=== PATIENT | female | born 1960 | race Caucasian/White ===

== ENCOUNTER → 2018-04-15 | Day surgery (SDC) | payer OTHER ==
[2018-04-12 16:36] LABS: BASOPHILS # (AUTO) 0.1 (0.0-0.1); BASOPHILS % 0.8 % (0.0-1.0); EOSINOPHILS # (AUTO) 0.1 (0.0-0.4); EOSINOPHILS % 1.3 % (0.0-6.0); HEMATOCRIT 43.7 % (34.2-44.1); HEMOGLOBIN 14.3 g/dL (12.0-16.0); LYMPHOCYTES # (AUTO) 1.4 (1.0-3.2); LYMPHOCYTES % 22.3 % (18.0-39.1); MEAN CORPUSCULAR HGB CONC 32.7 g/dL (31-35); MEAN CORPUSCULAR VOLUME 94.8 fL (81-99); MONOCYTES # (AUTO) 0.5 (0.2-0.8); MONOCYTES % 7.9 % (4.4-11.3); NEUTROPHILS # (AUTO) 4.2 (2.1-6.9); NEUTROPHILS % 67.4 % (38.7-80.0); PLATELET COUNT 178 x10e3/uL (140-360); RED BLOOD COUNT 4.61 x10e6/uL (3.6-5.1); RED CELL DISTRIBUTION WIDTH 13.8 % (11.7-14.4)
[2018-04-12 17:05] LABS: ANION GAP 12.6 mmol/L (8-16); CALCIUM 9.1 mg/dL (8.4-10.2); CREATININE, SERUM 0.95 mg/dL (0.57-1.11); POTASSIUM 3.6 mmol/L (3.5-5.1)
--- NOTE | 2018-04-12 17:29 | Diagnostic Imaging Report ---
EXAMINATION: PA and lateral views of the chest. COMPARISON: None CLINICAL HISTORY: Preop DISCUSSION: Lines/tubes: None. Lungs: The lungs are well inflated and clear. There is no evidence of pneumonia or pulmonary edema. Pleura: There is no pleural effusion or pneumothorax. Heart and mediastinum: Cardiomediastinal silhouette is unremarkable. Pulmonary vasculature is normal. Tortuous thoracic aorta. Bones and soft tissues: No acute bony abnormalities. Cervical fusion hardware is partially visualized. Metallic clips project over the lower right hemithorax, located in the right breast. Vertebroplasty changes in the lower thoracic/upper lumbar vertebral body IMPRESSION: No acute cardiopulmonary abnormalities. Signed by: Dr. Felipe Denney M.D. on 04/12/2018 5:26 PM
[~2018-04-15] MED LIST: ACETAMINOPHEN 1000 MG/100 ML 100 ML IV ONE; ACETAMINOPHEN/CODEINE 300MG - 30MG TAB ONE; ALLEGRA ALLERGY60 MG PO; BUPIVACAINE 0.25%/EPI 30ML SDV INJ ONE; CALCIUM CARBON500 MG PO; CEFAZOLIN SOD 2 GM/D5W 50ML 50 ML IV ONE; CYMBALTA20 MG PO; DEXAMETHASONE SOD PHOS INJ 4 MG/ML VIAL ONE; FENTANYL CITRATE/PF 100MCG/2 ML INJ ONE; KETOROLAC TROMETHAMINE 30 MG/ML VIAL ONE; LEVOTHYROXINE50 MCG PO; LIDOCAINE 1% W/EPINEPHRINE 20 ML VIAL ONE; LIDOCAINE HCL 2% LOCAL INJ 5 ML SDV VIAL INJ ONE; LOSARTAN POTAS100 MG PO; MIDAZOLAM HCL 2 MG/2 ML VIAL ONE; ONDANSETRON HCL INJ 2 MG/ML VIAL ONE; POTASSIUM CHLO10 ME1 PO; PROPOFOL IV EMULSION 10 MG/ML 20 ML VIAL ONE; SEVOFLURANE INHAL SOLN 250 ML PEN BTL ONE; SINGULAIR10 MG PO; TRIAMTERENE-HCTZ1 EA PO; VITAMIN D1000 UNI1 PO
--- OUTSIDE RECORDS SUMMARY | 2018-04-15 08:46 | XMS REPORT ---
Author Author [facility] Address Unknown Phone Unavailable Care Team Providers Care Transmission Supervisor Name Role Phone Melonie DEJESUS Unavailable Unavailable Anthony Sauer Unavailable Unavailable Nenita ROMAN Unavailable Unavailable Ben Tsang Unavailable Unavailable Problems This patient has no known problems. Allergies, Adverse Reactions, Alerts This patient has no known allergies or adverse reactions. Medications This patient has no known medications. Results Test Description Test Time Test Comments Text Results Atomic Results Result Comments CHEST 2 VIEWS 2018-04-12 17:24:00 [place] [address] Patient Name: AVERY GORDILLO MR #: [id number] : 1960 Age/Sex: 58/F Req #: [id number] Adm Physician: Ordered by: YAYO DEJESUS DO Report #: [id number] Location: OR Room/Bed: Procedure: [id number] DX/CHEST 2 VIEWS Exam Date: 04/12/18 Exam Time: 1647 REPORT STATUS: Signed EXAMINATION: PA and lateral views of the chest. COMPARISON: None CLINICAL HISTORY: Preop DISCUSSION: Lines/tubes: None. Lungs: The lungs are well inflated and clear. There is no evidence of pneumonia or pulmonary edema. Pleura: There is no pleural effusion or pneumothorax. Heart and mediastinum: Cardiomediastinal silhouette is unremarkable. Pulmonary vasculature is normal. Tortuous thoracic aorta. Bones and soft tissues: No acute bony abnormalities. Cervical fusion hardware is partially visualized. Metallic clips project over the lower right hemithorax, located in the right breast. Vertebroplasty changes in the lower thoracic/upper lumbar vertebral body IMPRESSION: No acute cardiopulmonary abnormalities. Signed by: Dr. Rosa Maria Denney M.D. on 04/12/2018 5:26 PM Dictated By: ROSA MARIA DENNEY MD 25 Transcribed By: BRISSA on 04/12/181725 COPY TO: YAYO DEJESUS DO Lumbar Spine 3 Views 2017-10-30 15:28:00 [place] [address] RAD[facility]OLOGY SERVICES REPORT Name: AVERY GORDILLO Acct Number: [id number] :1960 Age:57 Sex:F Ord Phys: ANTHONY SAUER Unit Number: [id number] [facility] Dr: Status: REG REF RAD Exam Date: 10/30/17 EXAM DESCRIPTION: RAD - Lumbar Spine 3 Views - 10/30/2017 3:20 pm CLINICAL HISTORY: M545 COMPARISON: None. FINDINGS: A three-view lumbar spine examination was performed. Approximately 50% compression fracture deformities seen in the L1 body which has been treated with vertebroplasty procedure. Height loss is greater along the right lateral margin. The compression changes create left convex scoliotic cu rvature at the L1 level. L2-L5 bodies are osteopenic with normal height. No lytic or blastic components. Prominent mid and lower lumbar facet joint degenerative change present. L5-S1 disc space is narrowed posteriorly. No other significant disc space narrowing. No pars defects identified. IMPRESSION: Approximately 50% compression fracture deformity L1 body treated with vertebroplasty procedure. Compression deformity at L1 creates left convex curvature at L1 and a right lateral tilt of the lower thoracic spine. Osteopenic and degenerative changes elsewhere in the lumbar spine. Signed By: Aaron Liriano MD Signed AT: 10/30/17 1528 Bacterial culture w ID 2017-07-10 09:45:00 Bacterial culture w ID (test [id number]) NORMAL UPPER RESPIRATORY DANIEL GROWN. [address] [place] [address] [facility] REPORT Name: AVERY GORDILLO Acct Number: [id number] :1960 Age:57 Sex:F Ord Phys: Ben Tsang MD Unit Number: [id number] [facility] Dr: Status: REG REF RAD Exam Date: 03/15/17 EXAM DESCRIPTION: RAD - Foot Left 3 View - 03/15/2017 3:15 pm CLINICAL HISTORY: M79.672 COMPARISON: None. FINDINGS: Moderate size plantar spur. No fracture, dislocation or periosteal reaction. No acute or destructive bony process. Mild degenerative changes are present at the second and third MTP joints. No air or foreign body in the soft tissues. IMPRESSION: Negative left foot examination for acute finding. Minimal second and third MTP joint degenerative changes. Signed By: Aaron Liriano MD Signed AT: 03/15/17 6355
--- OUTSIDE RECORDS SUMMARY | 2018-04-15 08:46 | XMS REPORT | Clinical Summary ---
Author Author [facility] Address Unknown Phone Unavailable Care Team Providers Care Capsule Filler Name Role Phone Ben Tsang MD PCP Allergies Not on File Medications Not on file Active Problems Not on file Encounters Care Team Description Date Type Specialty Bryan Briceno Jr., MD Arthralgia of right hand 11/21/2017 Hospital Radiology Encounter Bryan Briceno Jr., MD Arthralgia of right hand (Primary Dx) 11/21/2017 Transcribe Access Orders Bryan Briceno Jr., MD Primary generalized hypertrophic osteoarthrosis; Keratoconjunctivitis sicca; Muscle pain 08/08/2017 Hospital Radiology Encounter Bryan Briceno Jr., MD Primary generalized hypertrophic osteoarthrosis (Primary Dx); Keratoconjunctivitis sicca; Muscle pain 08/08/2017 Transcribe Access Orders after 04/14/2017 Social History Date Tobacco Use Types Packs/Day Years Used Never Assessed Sex Assigned at Date Recorded Not on file Industry Job Start Date Occupation Not on file Not on file Not on file Travel End Travel History Travel Start No recent travel history available. Last Filed Vital Signs Not on file Plan of Treatment Health Maintenance Due Date Last Done Comments CERVICAL CANCER SCREENING 02/25/1980 BREAST CANCER SCREENING 2009 COLON CANCER SCREENING 2009 SHINGLES VACCINES (1 of 2009 2) INFLUENZA VACCINE 10/31/2017 Procedures Comments Procedure Name Priority Date/Time Associated Diagnosis XR HAND 2 VW RIGHT Routine 11/21/2017 Arthralgia of right hand 12:23 PM CDT XR RIBS 2 VW LEFT Routine 08/08/2017 Primary generalized 1:51 PM CDT hypertrophic osteoarthrosis Keratoconjunctivitis sicca Muscle pain after 04/14/2017 Results * XR Hand 2 Vw Right (11/21/2017 12:23 PM CDT) Narrative Performed At EXAMINATION:XR HAND 2 VW RIGHT [facility] CLINICAL HISTORY:M25.541 Pain in joints of right hand, right hand pain COMPARISON:None. IMPRESSION: All joint spaces are well-maintained. There is no fracture or dislocation. Mineralization is normal. There are no erosions. No foreign bodies or soft tissue abnormalities are detected. [id number] Procedure Note Interface, Radiology Results Incoming - 11/21/2017 1:14 PM CDT EXAMINATION: XR HAND 2 VW RIGHT CLINICAL HISTORY: M25.541 Pain in joints of right hand, right hand pain COMPARISON: None. IMPRESSION: All joint spaces are well-maintained. There is no fracture or dislocation. Mineralization is normal. There are no erosions. No foreign bodies or soft tissue abnormalities are detected. [id number] Performing Organization Address [facility] [place] Phone Number [facility] [address] [place] [address] * XR Ribs 2 Vw Left (08/08/2017 1:51 PM CDT) Narrative Performed At EXAMINATION: XR RIBS 2 VW LEFT [facility] INDICATION: M15.0 Primary generalized (osteo)arthritis, M35.01 Sicca syndrome with keratoconjunctivitis, M15.0 COMPARISON: None IMPRESSION: 4 radiographs of the chest and ribs were obtained. No visible acute displaced rib fracture is seen. Heart is mildly enlarged. Arteriosclerosis aortic arch. Dextroscoliosis thoracic spine. Prior anterior cervical discectomy and fusion. No visible pneumothorax. [id number] Procedure Note Interface, Radiology Results Incoming - 08/08/2017 2:36 PM CDT EXAMINATION: XR RIBS 2 VW LEFT INDICATION: M15.0 Primary generalized (osteo)arthritis, M35.01 Sicca syndrome with keratoconjunctivitis, M15.0 COMPARISON: None IMPRESSION: 4 radiographs of the chest and ribs were obtained. No visible acute displaced rib fracture is seen. Heart is mildly enlarged. Arteriosclerosis aortic arch. Dextroscoliosis thoracic spine. Prior anterior cervical discectomy and fusion. No visible pneumothorax. [id number] Performing Organization Address City/State/Zipcode Phone Number [facility] [address] [place] [address] after 04/14/2017 Insurance Payer Benefit Subscriber ID Type Phone Address Plan / Group AETNA AETNA xxxxxxxxx HMO HMO,POS,EP O, [place] ([place]) [place] [address] Advance Directives Patient has advance care planning documents on file. For more information, bar oj contact: Niall Verma [address] [place] [address]
[2018-04-15 13:45] VITALS: BP 114/97
--- NOTE | 2018-04-15 14:02 | NUR ---
OPERATIVE NOTE Operative Note - Orthopedics Preop diagnosis: Right Knee Chondromalacia, Medial Femoral Condyle and Tibial Plateau Bone Marrow Lesion Postop diagnosis: Right Knee Chondromalacia, Medial Femoral Condyle and Tibial Plateau Bone Marrow Lesion and Cyst, Loose Bodies, Medial & Lateral Meniscal Tears Procedure: 1.Right knee arthroscopically assisted percutaneous skeletal fixation of an insufficiency fracture of the medial tibial plateau and medial femoral condyle 2. Partial medial and lateral meniscectomy 3. Chondroplasty 4. Removal of loose bodies 5. Platelet Rich Plasma Injection Indication: 58 year old F with right knee pain after arthrscopic partial medial and lateral meniscectomy with Chondromalacia and Medial Tibial Plateau Insuffici ency Fracture/Bone Marrow Lesion and Medial Femoral Condyle Bone Marrow Lesion. Patient presented with palpable tenderness along the regions of the lesions found on MRI and continues to complain of pain despite corticosteroid and viscosupplementation injections. Surgeon: Luisa Orr DO Anesthesia: General, LMA Salon Supervisor(s): None Estimated Blood Loss: <5 cc Findings: Right Knee Patellofemoral Compartment: Grade 3 on Patella and Grade 4 on Trochlea Lateral Gutter: No gross abnormalities Medial Gutter: No gross abnormalities Medial Compartment: Posterior horn medial meniscus tear/degeneration Medial Femoral Condyle - Grade 2 Chondromalacia Medial Tibial Plateau - Grade 2 Chondromalacia Chondral Loose Body Cruciate region: Intact ACL and PCL Lateral Compartment: Posterior horn medial meniscus tear/degeneration Lateral Femoral Condyle - Grade 1 Chondromalacia Lateral ibial Plateau - Grade 2-3 Chondromalacia Procedure: In the holding area, blood was taken from the patient and placed in a centrifuge as per ArPatient was seen in holding and identified along with righ t lower extremity. She was brought to the OR and in supine position underwent general anesthesia with LMA. All bony prominences were well padded. A tourniquet was applied on the right lower leg. The right lower leg was then prepped and draped in standard fashion. A timeout was performed confirming patient identity and laterality. An inferolateral incision was made and the arthroscopic trocar was introduced into the knee. Next a diagnostic arthroscopy was performed demonstrating the above findings. Chondral lesions and meniscal tears was debrided to a stable border with the shaver. The intercondylar notch was visualized demonstrating an intact ACL and PCL. T Next the lateral compartment was visualized demonstrating the above findings. The meniscus and loose chondral regions were debrided and the lateral compartment was thoroughly debrided. After establishing hemostasis, flouroscopy was used to obtain proper AP and lateral imaging. Triangulation of the insufficiency fracture using the preop MRI that is open at bedside and cross reference this with intra-op fluroscopy, cannulas were used introduced the cannulas in the areas of bone marrow lesions. 2.5 cc of calcium phosphate bone mimetic were introduced into each lesions which were verified with a blush on flouroscopy. Arthroscopy was used to confirm no extravasation of the bone mimetic into the medial compartment. The fluid in the knee was extravasated and the incisions were closed with nylon and the leg was cleaned. The PRP injection was introduced into the knee. Xeroform, 4x4, ABD and an Jose Cruz compressive dressing was applied. The patient awoke from anesthesia and was transferred to the PACU without complication Specimen: None Condition: Stable Disposition: To PACU then Home
--- NOTE | 2018-04-15 21:50 | NUR ---
DISCHARGE SUMMARY DATE OF ADMISSION 04/15/18 DATE OF DISCHARGE 04/15/18 ADMITTING PHYSICIAN Luisa Orr DO ADMITTING DIAGNOSES Right Knee Chondromalacia, Medial Tibial Plateau and Femoral Condyle Bone Marrow Lesion/Insufficiency Fracture DISCHARGE DIAGNOSES Right Knee Chondromalacia, Medial Tibial Plateal and Femoral Condyle Bone Marrow Lesion/Insufficiency Fracture, Medial and Lateral Meniscal Fraying/Tear PROCEDURE Right Knee Tibial Fracture Arthroscopically Assisted Internal Fixation of Medial Tibial Plateau and Femoral Condyle, Medial and Lateral Partial Meniscectomy, Chondroplasty, and PRP Injection HOSPITAL COURSE Patient admitted on 04/15/18. Underwent above stated procedure and was found to be stable upon discharge. Discharged home on original home medications along with Aspirin and Tylenol #3 with Codeine DISCHARGE ACTIVITY Partial Weight Bearing for 4 weeks DISCHARGE MEDICATIONS Continue home meds, along with Aspirin 325 mg PO Q Daily and Tylenol #3 Q4 PRN Pain DIET: Resume regular diet DISPOSITION: To Home FOLLOW-UP In 2 weeks in office
== END | disposition home or self-care (01) ==
LOC: OR 08:44
PROVIDERS: ATTEND Orthopaedic Surgery
DX: M85.9 Disorder of bone density and structure, unspecified (principal); M94.261 Chondromalacia, right knee; S83.281A Other tear of lateral meniscus, current injury, right knee, initial encounter; S83.241A Other tear of medial meniscus, current injury, right knee, initial encounter; Z88.5 Allergy status to narcotic agent; E03.8 Other specified hypothyroidism; K21.9 Gastro-esophageal reflux disease without esophagitis; I10 Essential (primary) hypertension; J45.909 Unspecified asthma, uncomplicated; M79.7 Fibromyalgia; M19.90 Unspecified osteoarthritis, unspecified site; Z85.3 Personal history of malignant neoplasm of breast; Z01.810 Encounter for preprocedural cardiovascular examination; Z01.812 Encounter for preprocedural laboratory examination; Z01.811 Encounter for preprocedural respiratory examination
CPT/HCPCS: 29855; 29880; 36415; 71046; 76000; 80048; 85025; 93005; J0131; J0690; J1100; J1885; J2001; J2250; J2405; J2704